=== PATIENT | female | born 1965 | race Caucasian/White ===

== ENCOUNTER → 2017-02-16 | Outpatient (CLI) | payer OTHER ==
[~2017-02-16] MED LIST: DIOVAN40 MG PO; LEVOTHYROXINE25 MCG PO; ZOCOR5 MG PO
== END | disposition home or self-care (01) ==
LOC: CDC 09:43
DX: Z01.810 Encounter for preprocedural cardiovascular examination (principal)
CPT/HCPCS: 93000

== ENCOUNTER 2017-02-19 07:29 | Day surgery (SDC) | payer OTHER ==
[~2017-02-19] VITALS: Ht 172.7 cm; Wt 107.1 kg
[2017-02-19 08:48] VITALS: BP 128/79
[2017-02-19 11:12] VITALS: BP 141/90
[2017-02-19 12:00] VITALS: BP 148/93
== END 2017-02-19 12:10 | disposition home or self-care (01) ==
LOC: SDC 07:29
DX: N84.0 Polyp of corpus uteri (principal); N95.0 Postmenopausal bleeding; E78.00 Pure hypercholesterolemia, unspecified; I10 Essential (primary) hypertension; E03.9 Hypothyroidism, unspecified; E66.9 Obesity, unspecified; Z68.35 Body mass index [BMI] 35.0-35.9, adult; Z82.49 Family history of ischemic heart disease and other diseases of the circulatory system; Z80.9 Family history of malignant neoplasm, unspecified
CPT/HCPCS: 88305; J0690; J1100; J1885; J2250; J2405; J3010